=== PATIENT | male | born 1975 | race Hispanic/Latino ===

== ENCOUNTER 2019-11-13 14:07 | Emergency (ER) | payer OTHER | END 2019-11-13 14:59 | disposition home or self-care (01) | LOC: EDH 14:07 | DX: S43.102A Unspecified dislocation of left acromioclavicular joint, initial encounter (principal); W18.39XA Other fall on same level, initial encounter; Y93.89 Activity, other specified; Y92.098 Other place in other non-institutional residence as the place of occurrence of the external cause; Y99.8 Other external cause status | CPT/HCPCS: 73030 ==